=== PATIENT | male | born 2000 | race Caucasian/White ===

== ENCOUNTER 2020-08-22 18:03 | Emergency (ER) | payer MEDICAID ==
[~2020-08-22] VITALS: Ht 180.3 cm; Wt 118.0 kg
[2020-08-22 21:37] VITALS: BP 126/77
[2020-08-22] MEDS: ACETAMINOPHEN 325MG TABLET PO ONE (23:12)
== END 2020-08-22 23:56 | disposition home or self-care (01) ==
LOC: ER 18:03
DX: G44.209 Tension-type headache, unspecified, not intractable (principal); H11.32 Conjunctival hemorrhage, left eye; F12.10 Cannabis abuse, uncomplicated
CPT/HCPCS: 70486; 99285